=== PATIENT | male | born 1960 | race Caucasian/White ===

== ENCOUNTER 2018-06-02 16:50 | Emergency (ER) | payer OTHER ==
--- NOTE | 2018-06-02 17:32 | EDPHY ---
H & P Smoking Status: Never smoked Time Seen by Provider: 06/02/18 17:25 HPI/ROS: CHIEF COMPLAINT: Alcohol intoxication, [employer] hold HISTORY OF PRESENT ILLNESS: Patient presents . There is documentation that he is on an [employer] hold by [employer] due to alcohol intoxication. Their documentation states that he was reportedly found on a deck, having reportedly fallen from a seated position. He does admit to heavy alcohol ingestion today. He thinks he may have fallen from a seated position but he has no headache. No neck pain. No nausea or vomiting. No visual disturbance. He says he was doing his day " until like crazy ex threw water on the."He has no complaints of any kind other than he is asking to leave. He is taking Xarelto for recent right TKA. No other associated complaints or modifying factors. REVIEW OF SYSTEMS: 10 systems were reviewed and negative with the exception of the elements mentioned in the history of present illness. PCP: Dr. Jones SPECIALISTS: Orthopedics PAST MEDICAL HISTORY: Osteoarthritis PAST SURGICAL HISTORY: Recent right TKA SOCIAL HISTORY: Nonsmoker. Daily alcohol use. Lives independently. FAMILY HISTORY: Noncontributory EXAMINATION: General Appearance: Alert, no distress. Strong odor of alcohol. Conversing appropriately in full sentences. Head: normocephalic, atraumatic. No Loera sign. No depression or deformity. No raccoon eyes. Eyes: Pupils equal and round, no conjunctival pallor or injection. EOM symmetric without nystagmus. ENT, Mouth: Mucous membranes moist Neck: Normal inspection, supple, non-tender Respiratory: Lungs are clear to auscultation Cardiovascular: Regular rate and rhythm. No murmur. Good signs of perfusion distally with symmetric DP PT pulses. Symmetric radial pulses. Gastrointestinal: Abdomen is soft and nontender Back: non-tender, no bony abnormalities Neurological: GCS 15. A&O, nonfocal. Strength is symmetric in all 4 limbs. Ambulatory without assistance Skin: Warm and dry, no rash. Superficial abrasions right anterior knee. No laceration or puncture. Extremities: Nontender, no pedal edema. Symmetric range of motion of all 4 limbs. Psychiatric: Appears intoxicated normal move and affect. No suicidal ideation. DIFFERENTIAL DIAGNOSES: Including but not limited to acute alcohol intoxication, alcohol dependence, blunt trauma, intracranial hemorrhage, concussion, cervical fracture, cervical sprain MDM: 5:25 p.m. Patient arrives with acute alcohol intoxication with strong odor of alcohol about him. He has no complaints, but the [employer] hold documents that he did fall prior to arrival. The patient says that he fell from a seated position and has no complaints related to this. Due to his intoxication, and his Xarelto use, I do feel it is reasonable to perform CT scan of the head cervical spine. He is awake alert. He is conversing appropriately. He has a normal neuro examination with no signs of trauma to the head or neck. 6:00 p.m. Notified by RN that the patient is declining his CT scan. I have re-evaluated the patient and informed him must have the scans or remain here overnight until he is no longer intoxicated. He has consented. 7:20 p.m. Notified that the patient is again declined a CT scan. I have sat down with him and discussed this. He says that he will consent to do this. 8:30 p.m. Notified by radiologist Dr. Love. CT scans reveal chronic changes as documented. There are no acute findings. I re-evaluated the patient. He remains ambulatory without difficulty. He is stable for transfer to the [facility]. [employer] be notified to do this as he is on an arc hold. Discharged stable condition. SUPERVISION: Patient was independently examined, but I discussed the case with my secondary supervising physician Dr. Espinosa CONSULTATION: None (Sandeep Chris) Constitutional: Initial Vital Signs Temperature (C) 98.4 F 06/02/18 16:55 Heart Rate 91 06/02/18 16:55 Respiratory Rate 16 06/02/18 16:55 Blood Pressure 149/85 H 06/02/18 16:55 O2 Sat (%) 92 06/02/18 16:55 O2 Delivery Mode Room Air Allergies/Adverse Reactions: No Known Allergies Allergy (Unverified 06/02/18 16:54) Home Medications: Medication Instructions Recorded Xarelto 06/02/18 MDM/Departure - MDM Imaging Results: Imaging Impressions Cervical Spine CT 06/02/18 17:25 Impression: There is no acute intracranial abnormality identified on this unenhanced CT evaluation. UNENHANCED CT SCAN OF THE CERVICAL SPINE Technique: A multidetector unenhanced helical CT scan was obtained from the clivus caudally through the upper thoracic spine, with images reformatted at 1.50 mm increments, and are reviewed in soft tissue, bone, and lung windows. Parasagittal and paracoronal reconstructed images are reviewed on the workstation. The DFOV is 13.5 cm. A dose reduction protocol was used. Findings: There is reversal of the normal cervical lordosis. There is minor anterior height reduction at C6, seen within the context of prominent ventral traction spurs from C5 to C7. There are trace degenerative anterolistheses at C3 -C4 and at C7-T1. The posterior alignment is otherwise unremarkable. There is no acute fracture, or facet malalignment. The interspinous distances are normal. The craniocervical junction is normal. The predental space, and the atlantoaxial lateral mass alignment is normal. The base and the tip of the dens are normal. There is no paravertebral or epidural hematoma identified. The prevertebral soft tissues are normal, as are the lung apices. The C1-C2 level is normal. At the C2-C3 level, there is moderate bilateral facet hypertrophy and mild uncovertebral degenerative spondylosis. There is minimal narrowing of the neural foramina. Minimal central disk bulging is observed with no significant canal stenosis. At the C3-C4 level, there is the aforementioned trace anterolisthesis. There is severe right-sided facet hypertrophy. There is uncovertebral degenerative spondylosis resulting in severe right neural foraminal stenosis and mild left neural foraminal stenosis. The central canal remains patent. At the C4-C5 level, there is severe right-sided facet hypertrophy and uncovertebral degenerative spondylosis, with severe right neural foraminal stenosis. There is moderate left neural foraminal stenosis secondary to uncovertebral degenerative spondylosis. The central canal remains patent. At the C5-C6 level, there is some very mild broad-based circumferential disk bulging, resulting in mild central canal stenosis. There is moderate right and mild left facet hypertrophy. Mild uncovertebral degenerative spondylosis is noted, resulting in mild bilateral neural foraminal stenosis, left greater than right. At the C6-C7 level, there is degenerative disk space narrowing with prominent ventral traction osteophytes. There is a moderate degree of central canal stenosis. Uncovertebral degenerative spondylosis results in moderate bilateral neural foraminal stenosis. At the C7-T1 level, there is the aforementioned degenerative anterolisthesis. There is facet hypertrophy and uncovertebral degenerative spondylosis, resulting in mild bilateral neural foraminal stenosis. There is a mild degree of central canal stenosis. There are some mild degenerative changes of the visualized upper thoracic spine. Impression: Multilevel degenerative features, with no acute cervical osseous abnormality. If there is further clinical concern regarding the patient's symptoms, correlative MR imaging could be considered, if otherwise not contraindicated. Findings were discussed with Sandeep Chris PA-C at 20:27, on 06/02/2018. Head CT 06/02/18 17:25 Impression: There is no acute intracranial abnormality identified on this unenhanced CT evaluation. UNENHANCED CT SCAN OF THE CERVICAL SPINE Technique: A multidetector unenhanced helical CT scan was obtained from the clivus caudally through the upper thoracic spine, with images reformatted at 1.50 mm increments, and are reviewed in soft tissue, bone, and lung windows. Parasagittal and paracoronal reconstructed images are reviewed on the workstation. The DFOV is 13.5 cm. A dose reduction protocol was used. Findings: There is reversal of the normal cervical lordosis. There is minor anterior height reduction at C6, seen within the context of prominent ventral traction spurs from C5 to C7. There are trace degenerative anterolistheses at C3 -C4 and at C7-T1. The posterior alignment is otherwise unremarkable. There is no acute fracture, or facet malalignment. The interspinous distances are normal. The craniocervical junction is normal. The predental space, and the atlantoaxial lateral mass alignment is normal. The base and the tip of the dens are normal. There is no paravertebral or epidural hematoma identified. The prevertebral soft tissues are normal, as are the lung apices. The C1-C2 level is normal. At the C2-C3 level, there is moderate bilateral facet hypertrophy and mild uncovertebral degenerative spondylosis. There is minimal narrowing of the neural foramina. Minimal central disk bulging is observed with no significant canal stenosis. At the C3-C4 level, there is the aforementioned trace anterolisthesis. There is severe right-sided facet hypertrophy. There is uncovertebral degenerative spondylosis resulting in severe right neural foraminal stenosis and mild left neural foraminal stenosis. The central canal remains patent. At the C4-C5 level, there is severe right-sided facet hypertrophy and uncovertebral degenerative spondylosis, with severe right neural foraminal stenosis. There is moderate left neural foraminal stenosis secondary to uncovertebral degenerative spondylosis. The central canal remains patent. At the C5-C6 level, there is some very mild broad-based circumferential disk bulging, resulting in mild central canal stenosis. There is moderate right and mild left facet hypertrophy. Mild uncovertebral degenerative spondylosis is noted, resulting in mild bilateral neural foraminal stenosis, left greater than right. At the C6-C7 level, there is degenerative disk space narrowing with prominent ventral traction osteophytes. There is a moderate degree of central canal stenosis. Uncovertebral degenerative spondylosis results in moderate bilateral neural foraminal stenosis. At the C7-T1 level, there is the aforementioned degenerative anterolisthesis. There is facet hypertrophy and uncovertebral degenerative spondylosis, resulting in mild bilateral neural foraminal stenosis. There is a mild degree of central canal stenosis. There are some mild degenerative changes of the visualized upper thoracic spine. Impression: Multilevel degenerative features, with no acute cervical osseous abnormality. If there is further clinical concern regarding the patient's symptoms, correlative MR imaging could be considered, if otherwise not contraindicated. Findings were discussed with Sandeep Chris PA-C at 20:27, on 06/02/2018. ED Course/Re-evaluation: I did not see this patient while he was in the emergency department. However his care was discussed with the PA while the patient was in the department. I agree with treatment plan and management (Guanako Espinosa) - Depart Disposition: Law Enforcement/Court/[facility] Clinical Impression: Alcoholic intoxication Qualifiers: Complication of substance-induced condition: uncomplicated Qualified Code(s): F10.920 - Alcohol use, unspecified with intoxication, uncomplicated Fall Qualifiers: Encounter type: initial encounter Qualified Code(s): W19.XXXA - Unspecified fall, initial encounter Condition: Good Instructions: At-Risk Alcohol Use (ED), Fall Prevention (ED) Additional Instructions: 1. Contact primary care physician on Monday morning for outpatient care 2. ED precautions for any headache, neck pain, visual disturbance, nausea vomiting. Referrals: Niya Del Rio MD [Medical Doctor] - As per Instructions Physician,Emergency DeptMD [Medical Doctor] - As per Instructions
[2018-06-02 22:55] VITALS: BP 120/82
== END 2018-06-02 22:45 ==
DX: F10.129 Alcohol abuse with intoxication, unspecified (principal); W18.30XA Fall on same level, unspecified, initial encounter; Y92.018 Other place in single-family (private) house as the place of occurrence of the external cause